=== PATIENT | female | born 1975 | race Hispanic/Latino ===

== ENCOUNTER 2019-06-08 07:36 | Day surgery (SDC) | payer BC ==
[2019-06-07 17:15] LABS: BASOPHILS % (AUTO) 0.6 % (0.0-5.0); EOSINOPHILS % (AUTO) 3.9 % (0.0-8.0); HEMATOCRIT 39.1 % (36-48); LYMPHOCYTES % (AUTO) 21.7 % (21.0-51.0); MEAN CORPUSCULAR VOLUME 88.2 fL (79-99); MONOCYTES % (AUTO) 8.2 % (3.0-13.0); NEUTROPHILS % (AUTO) 65.6 % (40.0-77.0); PLATELET COUNT (AUTO) 285 K/uL (130-400); RED BLOOD CELL COUNT(AUTO) 4.43 MIL/uL (4.00-5.50); RED CELL DISTRIBUTION WIDTH 14.3 % (11.0-15.5)
[2019-06-07 17:28] VITALS: BP 129/79
[~2019-06-08] VITALS: Ht 166.4 cm; Wt 82.4 kg
[2019-06-08] VITALS (17 sets, daily range): BP systolic 106–130; BP diastolic 61–85
[2019-06-08] MEDS ORDERED: LACTATED RINGERS 1000ML 1,000 ML IV ONE (08:24)
[2019-06-08] MEDS ORDERED: CALDOLOR 800MG+NS 250ML 250 ML IV ONE (08:31)
[2019-06-08] MEDS ORDERED: LEVO75TA10 PO (08:51)
[2019-06-08] MEDS ORDERED: CEFAZOLIN SODIUM 1 GM VIAL ONE (08:54)
[2019-06-08] MEDS ORDERED: MIDAZOLAM HCL 1 MG/ML 2ML VIAL ONE (08:59)
[2019-06-08] MEDS ORDERED: LIDOCAINE PF 2% 5ML ABBOJECT ONE (09:00)
[2019-06-08] MEDS ORDERED: FENTANYL CITRATE PF 50 MCG/1 ML 2ML VIAL ONE (09:00)
[2019-06-08] MEDS ORDERED: PROPOFOL 10 MG/ML 20ML VIAL IV ONE (09:00)
[2019-06-08] MEDS ORDERED: ONDANSETRON HCL 4 MG/2 ML VIAL ONE (09:00)
[2019-06-08] MEDS ORDERED: DEXAMETHASONE SOD PHOSPHATE 10MG/ML 1ML VIAL ONE (09:00)
--- NOTE | 2019-06-08 11:15 | NUR ---
PT. V/S STABLE NO COMPILATIONS WITH PROCEDURE. PT. LEFT VIA WHEEL CHAIR AND RX GIVEN TO WITH F/U APPT.
== END 2019-06-08 11:15 | disposition home or self-care (01) ==
LOC: DAH 07:36 → SUH 07:36
PROVIDERS: ATTEND Obstetrics & Gynecology
DX: N88.2 Stricture and stenosis of cervix uteri (principal); E03.9 Hypothyroidism, unspecified; N95.0 Postmenopausal bleeding; Z88.1 Allergy status to other antibiotic agents; Z88.8 Allergy status to other drugs, medicaments and biological substances; Z98.890 Other specified postprocedural states; Z82.49 Family history of ischemic heart disease and other diseases of the circulatory system; Z83.3 Family history of diabetes mellitus
CPT/HCPCS: 36415; 58558; 85025; 86850; 86900; 86901; 88305; A4215; A4221; A4222; A4223; A4351; A4355; J0690; J1100; J1741; J2001; J2250; J2405; J2704; J3010; J7030; J7120